=== PATIENT | male | born 2000 | race Caucasian/White ===

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

== ENCOUNTER 2023-03-10 15:47 | Emergency (ER) | payer OTHER ==
[~2023-03-10] VITALS: Ht 175.3 cm; Wt 114.8 kg
[~2023-03-10 15:47] MED LIST: NAPR-54 PO
[2023-03-10 15:57] VITALS: BP 122/67; PULSE 75; RESP 16; TEMP 98.1; O2SAT 97
[2023-03-10] MEDS ORDERED: FAMOTIDINE 20 MG TAB PO ONE (16:10)
[2023-03-10] MEDS ORDERED: DEXAMETHASONE 10 MG/ML VIAL IM ONE (16:10)
[2023-03-10] MEDS ORDERED: diphenhydrAMINE 50 MG/ML VIAL IM ONE (16:10)
[2023-03-10] MEDS ORDERED: DIPH25TA53 PO (16:41)
[2023-03-10] MEDS ORDERED: BENC TP (16:41)
[2023-03-10] MEDS ORDERED: LORA1T1237 PO (16:41)
[2023-03-10] MEDS ORDERED: EPIN1KIT31 IM (16:42)
[2023-03-11] MEDS ORDERED: BEN50 PO (23:36)
[2023-03-11] MEDS ORDERED: FAMO-92 PO (23:36)
[2023-03-11] MEDS ORDERED: PRED20TA5 PO (23:36)
== END 2023-03-10 16:47 | disposition home or self-care (01) ==
LOC: MED 15:47
DX: R21 Rash and other nonspecific skin eruption (principal); R06.89 Other abnormalities of breathing; T78.1XXA Other adverse food reactions, not elsewhere classified, initial encounter; J45.909 Unspecified asthma, uncomplicated; Z79.899 Other long term (current) drug therapy; Z79.1 Long term (current) use of non-steroidal anti-inflammatories (NSAID); X58.XXXA Exposure to other specified factors, initial encounter
CPT/HCPCS: 96372; 99284; J1100; J1200

== ENCOUNTER 2023-03-11 22:24 | Emergency (ER) | payer OTHER ==
[~2023-03-11] VITALS: Ht 175.3 cm; Wt 114.8 kg
[~2023-03-11 22:24] MED LIST changes: +BENC TP; +DIPH25TA53 PO; +EPIN1KIT31 IM; +LORA1T1237 PO
[2023-03-11 22:29] VITALS: BP 130/59; PULSE 93; RESP 20; TEMP 97.8; O2SAT 97
[2023-03-11 23:15] VITALS: O2SAT 96
[2023-03-11] MEDS ORDERED: FAMOTIDINE 20 MG TAB PO ONE (23:35)
[2023-03-11] MEDS ORDERED: BEN50 PO (23:36)
[2023-03-11] MEDS ORDERED: PRED20TA5 PO (23:36)
[2023-03-11] MEDS ORDERED: FAMO-92 PO (23:36)
[2023-03-12 00:48] VITALS: BP 130/59; PULSE 93; RESP 20; TEMP 97.8; O2SAT 96
== END 2023-03-12 00:49 | disposition home or self-care (01) ==
LOC: MED 22:24
DX: L50.9 Urticaria, unspecified (principal); T78.49XA Other allergy, initial encounter; J45.909 Unspecified asthma, uncomplicated; X58.XXXA Exposure to other specified factors, initial encounter
CPT/HCPCS: 99283; Q0163

== ENCOUNTER 2023-12-09 17:18 | Emergency (ER) | payer OTHER ==
[~2023-12-09] VITALS: Ht 175.3 cm; Wt 108.9 kg
[~2023-12-09 17:18] MED LIST changes: +BEN50 PO; +FAMO-92 PO; +NAPR-337 PO; -NAPR-54 PO; +PRED20TA5 PO
[2023-12-09 17:34] VITALS: BP 112/52; PULSE 79; RESP 18; TEMP 98.5; O2SAT 98
[2023-12-09] MEDS ORDERED: CEPH-588 PO (18:06)
[2023-12-09] MEDS ORDERED: BACTO TP (18:06)
== END 2023-12-09 18:24 | disposition home or self-care (01) ==
LOC: MED 17:18
DX: L01.00 Impetigo, unspecified (principal); Z79.899 Other long term (current) drug therapy
CPT/HCPCS: 99283